=== PATIENT | male | born 1945 | race Caucasian/White ===

== ENCOUNTER 2017-12-06 06:37 | Day surgery (SDC) | payer MEDICARE ==
[2017-12-05 15:43] LABS: BASOPHILS # (AUTO) 0.1 X10'3 (0-0.2); BASOPHILS % (AUTO) 0.6 % (0-1); EOSINOPHILS # (AUTO) 0.5 X10'3 (0-0.9); EOSINOPHILS % (AUTO) 5.5 % (0-6); HEMATOCRIT 35.6 % (42.0-52.0); HEMOGLOBIN 11.9 g/dl (14.0-17.9); LYMPHOCYTES # (AUTO) 1.2 X10'3 (1.1-4.8); LYMPHOCYTES % (AUTO) 13.2 % (21-51); MEAN CORPUSCULAR HEMOGLOBIN 31.4 PG (27.0-31.0); MEAN CORPUSCULAR HGB CONC 33.3 % (33.0-36.5); MEAN CORPUSCULAR VOLUME 94.5 FL (78-98); MEAN PLATELET VOLUME 10.3 FL (7.4-10.4); MONOCYTES % (AUTO) 10.8 % (2-12); NEUTROPHILS # (AUTO) 6.3 X10'3 (1.8-7.7); NEUTROPHILS % (AUTO) 69.9 % (42-75); PLATELET COUNT 149 X10'3 (140-440); RED BLOOD COUNT 3.77 X10'6 (4.70-6.10); RED CELL DISTRIBUTION WIDTH 15.5 % (11.5-14.5)
[2017-12-05 15:51] LABS: INR 1.1 INR; PARTIAL THROMBOPLASTIN TIME 28 SECONDS (22-32); PROTHROMBIN TIME 11.7 SECONDS (9.0-12.0)
[2017-12-05 15:53] LABS: ALBUMIN 3.1 G/DL (3.4-5.0); ANION GAP 10 (8-16); BLOOD UREA NITROGEN 22 MG/DL (7-18); BUN/CREATININE RATIO 16.1 (5.4-32.0); CALCIUM 8.7 MG/DL (8.5-10.1); CHLORIDE 101 MMOL/L (99-107); CREATININE 1.37 MG/DL (0.60-1.10); GLUCOSE 177 MG/DL (70-104); SODIUM 140 MMOL/L (135-145); TOTAL CARBON DIOXIDE 29.5 MMOL/L (24-32); eGFR 51 ML/MIN
[~2017-12-06] VITALS: Ht 167.6 cm; Wt 116.4 kg
[2017-12-06] VITALS (21 sets, daily range): BP systolic 117–199; BP diastolic 49–127
[~2017-12-06 06:37] MED LIST: ALBU8HFA PO; ASPI81TA46 PO; ATEN-27 PO; ATOR40TA PO; ENAL10TA78 PO; FLUO20CA39 PO; FURO40TA4 PO; HYDR1TAB PO; INSU100C4 SQ; LANTUS SQ; LEVO100T PO; METF500T PO; NIT5P TD; NITR0.4T51 SL; OMEP20TA5 PO; POTA10TA36 PO; PRED15SO23 PO; SITA100T15 PO; SYMBICORT 160/4.5 INH
[2017-12-06] MEDS ORDERED: diphenhydrAMINE 25mg capsule PO PRN (06:55)
[2017-12-06] MEDS ORDERED: LORazepam 0.5 MG tablet PO PRN (06:55)
[2017-12-06] MEDS ORDERED: FLUT1DIS INH (07:54)
[2017-12-06] MEDS ORDERED: ALBU18HF2 INH (07:54)
[2017-12-06] MEDS ORDERED: CARV-50 PO (07:54)
[2017-12-06] MEDS ORDERED: Insulin Syringe INJ (07:54)
[2017-12-06] MEDS ORDERED: KEN0.1O TP (07:54)
[2017-12-06] MEDS ORDERED: ADV50100 (07:54)
[2017-12-06] MEDS ORDERED: DORZ10DR10 EACHEYE (07:54)
[2017-12-06] MEDS ORDERED: KETO5DRO82 EACHEYE (07:54)
[2017-12-06] MEDS ORDERED: Insulin Syringe IJ (07:54)
[2017-12-06] MEDS: normal saline 1000ml 1,000 ML IV SCH ×2 (08:12→16:55)
[2017-12-06] MEDS ORDERED: nitroGLYCERIN-Tridil 50MG/D5W 250 ML IV ONE (09:39)
[2017-12-06] MEDS ORDERED: fentaNYL/PF 50MCG/1 ML 2ML syringe ONE (09:39)
[2017-12-06] MEDS ORDERED: iohexol 350MG/ML 100ml bottle IV ONE ×3 (09:40→10:55)
[2017-12-06] MEDS ORDERED: heparin 1,000unit/ml 10ml vial 10 ML ONE (09:40)
[2017-12-06] MEDS ORDERED: LIDOcaine 1%/PF 5ML 10 MG/ML VIAL ONE (09:40)
[2017-12-06] MEDS ORDERED: iohexol 350 MG/ML 50ML vial IV ONE (09:40)
[2017-12-06] MEDS ORDERED: midazolam 2 mg/2 ml injection ONE (09:40)
[2017-12-06] MEDS ORDERED: sod bicarbonate 150mEq in D5W 1,150 ML IV ONE (11:00)
[2017-12-06] MEDS ORDERED: clopidogrel 300mg tablet ONE (11:09)
[2017-12-06] MEDS ORDERED: potassium Cl 20 mEq SR tablet PO ONE (12:15)
[2017-12-06] MEDS ORDERED: furosemide 40mg/4ml inj IV ONE ×2 (12:15→21:15)
[2017-12-06] MEDS ORDERED: OXAZEpam 15mg capsule PO PRN (12:20)
[2017-12-06] MEDS ORDERED: acetaminophen 325mg tablet PO PRN (12:20)
[2017-12-06] MEDS ORDERED: aspirin 325mg tablet PO ONE (12:20)
[2017-12-06] MEDS ORDERED: magnesium hydroxide 30ml (MOM) UD suspension PO PRN (12:20)
[2017-12-06] MEDS ORDERED: cyclobenzaprine 10mg tablet PO PRN (12:20)
[2017-12-06] MEDS ORDERED: BUDE10.2 INH (12:25)
[2017-12-06] MEDS ORDERED: HYDROcodone/acetaminophen 5mg/325mg tablet PO PRN (12:25)
[2017-12-06] MEDS ORDERED: nitroGLYCERIN 0.4mg SUBLingual tab SL PRN (12:25)
[2017-12-06] MEDS ORDERED: glucagon, human recombinant 1mg kit SUBCUT PRN (12:50)
[2017-12-06] MEDS ORDERED: dextrose ORAL solution 15 GM/59 ML bottle PO PRN ×2 (12:50)
[2017-12-06] MEDS ORDERED: dextrose 50%-water 50ml dispensing syringe IV PRN ×2 (12:50)
[2017-12-06] MEDS ORDERED: prednisoLONE 15mg/5ml oral solution 5ml cup PO SCH (13:00)
[2017-12-06] MEDS: albuterol 2.5 MG/3 ML nebule NEB PRN ×3 (13:22→23:48)
[2017-12-06 14:56] LABS: ISTAT HGB ART 11.6 g/dl (14.0-18.0); ISTAT Hct ART 34 %PCV (42-52); ISTAT O2 SATURATION ARTERIAL 93 % (95-98); ISTAT SOURCE ART
[2017-12-06 14:56] LABS: ISTAT Hct MIX 34 %PCV (42-52); ISTAT O2 SATURATION MIX VENOUS 60 % (60-80); ISTAT SOURCE MIX
[2017-12-06 18:14] LABS: HEMOGLOBIN A1C 8.7 % (4.5-6.2)
[2017-12-06] MEDS: insulin Lispro (HumaLOG) vial - multi-dose SQ SCH ×2 (19:38→21:30)
[2017-12-06] MEDS: carvedilol 6.25mg tablet PO SCH (19:42)
[2017-12-06] MEDS: lisinopril 10 MG tablet PO SCH (19:42)
[2017-12-06] MEDS: potassium chloride 10mEq ER tablet PO SCH (19:43)
[2017-12-06] MEDS: docusate sod 100mg capsule PO SCH (19:43)
[2017-12-06] MEDS ORDERED: non-formulary drug (Budesonide/Formoterol Fumarate (Symbicort 160-4.5 Mcg Inhaler) 2 PUFFS INH SCH (20:00)
[2017-12-06] MEDS ORDERED: insulin glargine (Lantus) pen - multi-dose SQ SCH (21:00)
[2017-12-06] MEDS ORDERED: atenolol 25mg tablet PO SCH (21:00)
[2017-12-06] MEDS: atorvastatin 20mg tablet PO SCH (21:06)
[2017-12-06] MEDS ORDERED: potassium Cl 20 mEq SR tablet PO STA (21:11)
[2017-12-06] MEDS: insulin glargine (Lantus) pen - multi-dose SQ SCH (21:28)
[2017-12-06] MEDS: DOBUTamine-DoBUTrex 500mg/D5W 250 ML IV SCH (21:47)
[2017-12-06] MEDS ORDERED: sodium bicarbonate (8.4%) inj. 150 MEQ in dextrose 5%-water 1,000 ML IV SCH (22:00)
[2017-12-07] VITALS (9 sets, daily range): BP systolic 106–121; BP diastolic 37–91
[2017-12-07 06:05] LABS: ALBUMIN 2.9 G/DL (3.4-5.0); ANION GAP 6 (8-16); BLOOD UREA NITROGEN 20 MG/DL (7-18); BUN/CREATININE RATIO 14.2 (5.4-32.0); CALCIUM 8.6 MG/DL (8.5-10.1); CHLORIDE 100 MMOL/L (99-107); CREATININE 1.41 MG/DL (0.60-1.10); GLUCOSE 198 MG/DL (70-104); POTASSIUM 4.2 MMOL/L (3.5-5.1); SODIUM 139 MMOL/L (135-145); TOTAL CARBON DIOXIDE 32.7 MMOL/L (24-32); eGFR 50 ML/MIN
[2017-12-07] MEDS: pantoprazole 40mg Tablet.DR PO SCH (07:30)
[2017-12-07] MEDS ORDERED: atenolol 50mg tablet PO SCH (08:00)
[2017-12-07] MEDS ORDERED: potassium Cl 20 mEq SR tablet PO ONE (08:00)
[2017-12-07] MEDS ORDERED: furosemide 40mg/4ml inj IV ONE ×2 (08:00→18:40)
[2017-12-07] MEDS ORDERED: ALBUTEROL SULFATE 90 MCG INH SCH (08:00)
[2017-12-07] MEDS: potassium chloride 10mEq ER tablet PO SCH ×2 (08:00→19:07)
[2017-12-07] MEDS: nitroGLYCERIN 0.2mg/hour patch TD SCH (08:00)
[2017-12-07] MEDS ORDERED: furosemide 40mg tablet PO SCH (08:00)
[2017-12-07] MEDS: triamcinolone acet 0.1% cream 15gm TP SCH (08:00)
[2017-12-07] MEDS: dorzolamide/timolol (Cosopt) ophthalmic drops 10ml bottle EACHEYE SCH (08:00)
[2017-12-07] MEDS: aspirin 325mg tablet PO SCH (08:30)
[2017-12-07] MEDS: levoTHYROXINE 100mcg tablet PO SCH (08:53)
[2017-12-07] MEDS: FLUoxetine 20mg capsule PO SCH (08:53)
[2017-12-07] MEDS: clopidogrel 75mg tablet PO SCH (08:53)
[2017-12-07] MEDS: docusate sod 100mg capsule PO SCH ×2 (08:53→19:07)
[2017-12-07] MEDS: lisinopril 10 MG tablet PO SCH (08:54)
[2017-12-07] MEDS: aspirin 81mg tablet.DR PO SCH (08:54)
[2017-12-07] MEDS: carvedilol 6.25mg tablet PO SCH (08:54)
[2017-12-07] MEDS: ketorolac tromethamine 0.5% ophthalmic drops RIGHTEYE SCH (08:55)
[2017-12-07] MEDS: albuterol 2.5 MG/3 ML nebule NEB PRN ×2 (08:57→19:16)
[2017-12-07] MEDS: insulin Lispro (HumaLOG) vial - multi-dose SQ SCH ×3 (09:29→21:42)
[2017-12-07 10:28] LABS: ALBUMIN 2.8 G/DL (3.4-5.0); ANION GAP 7 (8-16); BLOOD UREA NITROGEN 19 MG/DL (7-18); BUN/CREATININE RATIO 15.1 (5.4-32.0); CALCIUM 8.4 MG/DL (8.5-10.1); CHLORIDE 99 MMOL/L (99-107); CREATININE 1.26 MG/DL (0.60-1.10); GLUCOSE 282 MG/DL (70-104); SODIUM 140 MMOL/L (135-145); TOTAL CARBON DIOXIDE 33.9 MMOL/L (24-32); eGFR 57 ML/MIN
[2017-12-07] MEDS: potassium Cl 20 mEq SR tablet PO SCH (17:41)
[2017-12-07] MEDS ORDERED: furosemide 40mg/4ml inj IV SCH (20:00)
[2017-12-07] MEDS ORDERED: carvedilol 6.25mg tablet PO SCH (20:00)
[2017-12-07] MEDS: atorvastatin 20mg tablet PO SCH (21:32)
[2017-12-07] MEDS: DOBUTamine-DoBUTrex 500mg/D5W 250 ML IV SCH (21:34)
[2017-12-07] MEDS ORDERED: sacubitril/valsartan 24mg-26mg tablet PO SCH (22:00)
[2017-12-07] MEDS: furosemide 40mg/4ml inj IV SCH (22:46)
[2017-12-07] MEDS: insulin glargine (Lantus) pen - multi-dose SQ SCH (22:49)
[2017-12-08 02:00] VITALS: BP 99/69
[2017-12-08 05:27] LABS: ALBUMIN 2.9 G/DL (3.4-5.0); ANION GAP 6 (8-16); BLOOD UREA NITROGEN 26 MG/DL (7-18); BUN/CREATININE RATIO 17.4 (5.4-32.0); CALCIUM 8.8 MG/DL (8.5-10.1); CHLORIDE 100 MMOL/L (99-107); CREATININE 1.49 MG/DL (0.60-1.10); GLUCOSE 118 MG/DL (70-104); SODIUM 140 MMOL/L (135-145); TOTAL CARBON DIOXIDE 33.6 MMOL/L (24-32); eGFR 47 ML/MIN
[2017-12-08 06:00] VITALS: BP 103/52
[2017-12-08] MEDS ORDERED: METF500T PO (06:47)
[2017-12-08] MEDS ORDERED: SACU1TAB PO (06:47)
[2017-12-08] MEDS ORDERED: CLOP75TA35 PO (06:47)
[2017-12-08] MEDS ORDERED: CARV-50 PO (06:47)
[2017-12-08] MEDS ORDERED: PANT40TA4 PO (06:47)
[2017-12-08] MEDS ORDERED: metFORMIN 500mg tablet PO SCH (07:00)
[2017-12-08] MEDS ORDERED: carVEDilol 12.5mg tablet PO SCH (08:00)
[2017-12-08] MEDS ORDERED: sacubitril/valsartan 24mg-26mg tablet PO SCH ×2 (08:00→10:00)
[2017-12-08] MEDS: potassium chloride 10mEq ER tablet PO SCH (08:00)
[2017-12-08] MEDS: FLUoxetine 20mg capsule PO SCH (08:26)
[2017-12-08] MEDS: nitroGLYCERIN 0.2mg/hour patch TD SCH (08:26)
[2017-12-08] MEDS: ketorolac tromethamine 0.5% ophthalmic drops RIGHTEYE SCH (08:26)
[2017-12-08] MEDS: pantoprazole 40mg Tablet.DR PO SCH (08:26)
[2017-12-08] MEDS: potassium Cl 20 mEq SR tablet PO SCH (08:27)
[2017-12-08] MEDS: docusate sod 100mg capsule PO SCH (08:27)
[2017-12-08] MEDS: aspirin 81mg tablet.DR PO SCH (08:27)
[2017-12-08] MEDS: clopidogrel 75mg tablet PO SCH (08:27)
[2017-12-08] MEDS: furosemide 40mg/4ml inj IV SCH (08:28)
[2017-12-08] MEDS: triamcinolone acet 0.1% cream 15gm TP SCH (08:29)
[2017-12-08] MEDS: aspirin 325mg tablet PO SCH (08:30)
[2017-12-08] MEDS: dorzolamide/timolol (Cosopt) ophthalmic drops 10ml bottle EACHEYE SCH (08:33)
[2017-12-08] MEDS: levoTHYROXINE 100mcg tablet PO SCH (08:34)
[2017-12-08] MEDS: insulin Lispro (HumaLOG) vial - multi-dose SQ SCH (08:52)
[2017-12-08] MEDS: albuterol 2.5 MG/3 ML nebule NEB PRN (09:06)
== END 2017-12-08 10:45 | disposition home or self-care (01) ==
LOC: SSTAY O 06:37 → PCU 3S 17:36 → SSTAY O 12-08 10:45
PROVIDERS: ATTEND Internal Medicine Cardiovascular Disease
DX: I25.110 Atherosclerotic heart disease of native coronary artery with unstable angina pectoris (principal); E11.9 Type 2 diabetes mellitus without complications; E78.5 Hyperlipidemia, unspecified; E66.9 Obesity, unspecified; I11.0 Hypertensive heart disease with heart failure; I50.9 Heart failure, unspecified; I25.5 Ischemic cardiomyopathy; I25.2 Old myocardial infarction; Z79.4 Long term (current) use of insulin; Z79.84 Long term (current) use of oral hypoglycemic drugs; Z95.810 Presence of automatic (implantable) cardiac defibrillator; Z79.82 Long term (current) use of aspirin; Z95.1 Presence of aortocoronary bypass graft; Z95.5 Presence of coronary angioplasty implant and graft; Z68.41 Body mass index [BMI] 40.0-44.9, adult; Z79.899 Other long term (current) drug therapy; Z98.890 Other specified postprocedural states; Z72.89 Other problems related to lifestyle; Z87.891 Personal history of nicotine dependence
CPT/HCPCS: 36415; 80048; 82803; 82948; 83036; 83880; 85014; 85025; 85347; 85610; 85730; 87070; 93005; 93461; 94640; 94660; 94760; 99152; 99153; A6257; C1725; C1769; C1874; C1894; C9600; J1250; J1644; J1815; J1940; J2001; J2250; J3010; J3490; J7030; Q0163; Q9967; A4620